=== PATIENT | female | born 1955 | race Caucasian/White ===

== ENCOUNTER 2018-05-05 11:53 | Emergency (ER) | payer OTHER ==
[~2018-05-05] VITALS: Ht 180.3 cm; Wt 94.3 kg
[2018-05-05 11:59] VITALS: BP 121/65
[2018-05-05] MEDS ORDERED: BACTRIM DS TAB1 EACH PO (12:13)
[2018-05-05] MEDS ORDERED: MOBIC15 MG PO (12:13)
== END 2018-05-05 12:41 | disposition home or self-care (01) ==
LOC: ER 11:53
DX: L03.317 Cellulitis of buttock (principal)